=== PATIENT | male | born 1970 | race Caucasian/White ===

== ENCOUNTER → 2022-10-19 | Outpatient (CLI) | payer OTHER | END | disposition home or self-care (01) | LOC: LAB 15:16 → LAB SHORT 15:16 → PLD 15:16 | DX: M72.2 Plantar fascial fibromatosis (principal); M79.671 Pain in right foot; D21.9 Benign neoplasm of connective and other soft tissue, unspecified; R26.2 Difficulty in walking, not elsewhere classified | CPT/HCPCS: 88304 ==

== ENCOUNTER → 2024-09-20 | Outpatient (CLI) | payer OTHER ==
[2024-09-20 14:37] LABS: Microalb/Creat Ratio UR, Rand 8.11 mg/g (0.000-30.000); Microalbumin, Random Urine 13.3 mg/L (0.000-20.000)
== END ==
LOC: LAB SHORT 07:22 → LAB 07:22
PROVIDERS: Internal Medicine
DX: E11.69 Type 2 diabetes mellitus with other specified complication (principal); E11.42 Type 2 diabetes mellitus with diabetic polyneuropathy; E11.628 Type 2 diabetes mellitus with other skin complications
CPT/HCPCS: 82043; 82570

== ENCOUNTER 2024-11-13 19:16 | Inpatient (IN) | payer OTHER ==
[~2024-11-13] VITALS: Ht 190.5 cm; Wt 126.9 kg
[2024-11-13 19:55] LABS: BASOPHILS ABSOLUTE AUTO 0.05 K/mm3 (0.00-0.23); BASOPHILS PERCENT AUTO 0 % (0-2); EOSINOPHILS ABSOLUTE AUTO 0.12 K/mm3 (0.00-0.68); EOSINOPHILS PERCENT AUTO 1 % (0-6); Hematocrit 53.7 % (37.0-53.0); Hemoglobin 18.2 g/dL (13.5-17.5); IMMATURE GRAN ABSOLUTE AUTO 0.08 K/mm3 (0.00-0.10); IMMATURE GRAN PERCENT AUTO 1 % (0-1); LYMPHOCYTES ABSOLUTE AUTO 2.16 K/mm3 (0.84-5.20); LYMPHOCYTES PERCENT AUTO 15 % (21-46); MONOCYTES ABSOLUTE AUTO 0.79 K/mm3 (0.16-1.47); MONOCYTES PERCENT AUTO 6 % (4-13); Mean Corpuscular HGB Conc 33.9 g/dL (31.5-36.5); Mean Corpuscular Volume 86 fL (80-100); NEUTROPHILS ABSOLUTE AUTO 11.05 K/mm3 (1.96-9.15); NEUTROPHILS PERCENT AUTO 78 % (41-73); NRBC ABSOLUTE 0.00 K/mm3 (0.00-0.02); NRBC Auto 0.0 /100 WBC (0.0-0.2); Platelet Count 285 K/mm3 (150-400); RDW Coefficient Variation 13.8 % (11.7-14.2); RDW Standard Deviation 44.0 fL (35.1-46.3)
[2024-11-13] MEDS ORDERED: OZEMPIC1 MG/0.72 SQ (20:06)
[2024-11-13] MEDS ORDERED: METOPROLOL SUCC25 MG PO (20:07)
[2024-11-13] MEDS ORDERED: ERGO400 (20:07)
[2024-11-13] MEDS ORDERED: DEPO-TESTO200 MG/18 IM (20:07)
[2024-11-13] MEDS ORDERED: ASPIRIN REGIMEN81 MG PO (20:07)
[2024-11-13] MEDS ORDERED: LOSA50 PO (20:07)
[2024-11-13 20:17] LABS: Alanine Aminotransfer (ALT/SGP 48.0 U/L (12-78); Albumin, Blood 3.8 g/dL (3.4-5.0); Albumin/Globulin Ratio 1.0 (0.8-1.8); Anion Gap 10.0 mmol/L (3-11); Aspartate Aminotrans (AST/SGOT 21.0 U/L (12-37); Bilirubin, Total 0.9 mg/dL (0.1-1.0); Blood Urea Nitrogen 14.0 mg/dL (8-24); CO2, Blood 24.0 mmol/L (21-32); Calcium, Blood 9.7 mg/dL (8.5-10.1); Chloride, Blood 106.0 mmol/L (98-108); Creatinine, Blood 1.07 mg/dL (0.60-1.20); Globulin, Blood 4.0 g/dL (2.2-4.0); Glucose, Blood 116.0 mg/dL (70-99); Potassium, Blood 4.0 mmol/L (3.5-5.5); Sodium, Blood 136.0 mmol/L (136-145); Total Protein, Blood 7.8 g/dL (6.4-8.2)
[2024-11-13] MEDS ORDERED: Ondansetron HCl 2 MG / ML 2ML Vial IV ONE (20:40)
[2024-11-13] MEDS ORDERED: Morphine Sulfate 4 MG/1 ML Injection IV ONE ×2 (20:40→21:30)
[2024-11-13] MEDS ORDERED: Ketorolac Tromethamine 15mg Vial IV ONE (21:40)
[2024-11-13] MEDS ORDERED: NS 1,000 ML BAG IR ONE (21:40)
[2024-11-13] MEDS ORDERED: NS 1,000 ML IV ONE (21:42)
[2024-11-13] MEDS ORDERED: NS 1,000 ML IV SCH (21:50)
[2024-11-14 00:03] LABS: Source, Urine Clean Catch
[2024-11-14] MEDS ORDERED: NS 1,000 ML IV SCH (00:05)
[2024-11-14 00:13] LABS: Bilirubin, Urine Neg (Neg); Color, Urine Yellow (P-Yellow); Glucose Qualitative, Urine Neg (Neg); Ketones, Urine Neg (Neg); Leukocyte Esterase, Urine Neg (Neg); Protein, Urine 2+ (Neg); Specific Gravity, Urine 1.020 (1.003-1.022); Urobilinogen, Urine NORM (Normal)
[2024-11-14 00:22] LABS: Red Blood Cells, Urine 0-2 /hpf (0-2); White Blood Cells, Urine Not Seen /hpf (0-5)
[2024-11-14] MEDS ORDERED: CefTRIAXone Sodium 1,000 MG in NS 100 ML IV SCH (00:35)
[2024-11-14] MEDS ORDERED: MetroNIDAZOLE 500MG/NS 100 ml 100 ML IV SCH (00:36)
--- NOTE | 2024-11-14 01:00 | NUR ---
ARRIVAL TO UNIT PT ARRIVED TO UNIT FROM ED VIA GOURNEY. PT ABLE TO IND AMBULATE TO BED. A&O x4, RESPONDS TO QUESTIONS APPROPRIATELY, MAKES NEEDS KNOWN. VSS, BP ELEVATED, STABLE. PT REPORTS CONSTANT PAIN TO L ABD 8/10. PT ENDORSES NAUSEA & "DRY HEAVING" 7.7.25, DENIES SYMPTOMS SINCE ARRIVAL TO UNIT. ABD FIRM & DISTENDED. NPO STATUS. IV ABX INFUSING FROM ED. ORIENTED TO UNIT, CALL LIGHT IN REACH, NO NEEDS STATED.
[2024-11-14 01:07] VITALS: BP 164/105
--- NOTE | 2024-11-14 01:18 | NUR ---
DR HERRERA TO BEDSIDE
[2024-11-14] MEDS ORDERED: Morphine Sulfate 4 MG/1 ML Injection IV PRN (01:20)
--- NOTE | 2024-11-14 05:56 | NUR ---
SHIFT SUMMARY NO ACUTE CHANGES OVERNIGHT. VSS. NPO STATUS. PT SLEPT WELL. PT REPORTS ABD PAIN TOLERABLE, MEDICATED PER EMAR. IV FLUIDS/ABX INFUSING PER EMAR. VOIDING. IND IN ROOM. CALL LIGHT IN REACH, BED IN LOWEST POSITION, WILL REPORT TO DAY RN.
[2024-11-14 06:15] VITALS: BP 155/105
[2024-11-14 06:47] LABS: BASOPHILS ABSOLUTE AUTO 0.05 K/mm3 (0.00-0.23); BASOPHILS PERCENT AUTO 0 % (0-2); EOSINOPHILS ABSOLUTE AUTO 0.23 K/mm3 (0.00-0.68); EOSINOPHILS PERCENT AUTO 2 % (0-6); Hematocrit 49.9 % (37.0-53.0); Hemoglobin 16.3 g/dL (13.5-17.5); IMMATURE GRAN ABSOLUTE AUTO 0.06 K/mm3 (0.00-0.10); IMMATURE GRAN PERCENT AUTO 1 % (0-1); LYMPHOCYTES ABSOLUTE AUTO 2.79 K/mm3 (0.84-5.20); LYMPHOCYTES PERCENT AUTO 23 % (21-46); MONOCYTES ABSOLUTE AUTO 0.85 K/mm3 (0.16-1.47); MONOCYTES PERCENT AUTO 7 % (4-13); Mean Corpuscular HGB Conc 32.7 g/dL (31.5-36.5); Mean Corpuscular Volume 90 fL (80-100); NEUTROPHILS ABSOLUTE AUTO 8.02 K/mm3 (1.96-9.15); NEUTROPHILS PERCENT AUTO 67 % (41-73); NRBC ABSOLUTE 0.00 K/mm3 (0.00-0.02); NRBC Auto 0.0 /100 WBC (0.0-0.2); Platelet Count 225 K/mm3 (150-400); RDW Coefficient Variation 13.9 % (11.7-14.2); RDW Standard Deviation 46.1 fL (35.1-46.3)
[2024-11-14 06:55] VITALS: BP 160/110
[2024-11-14 07:08] LABS: Anion Gap 9.0 mmol/L (3-11); Blood Urea Nitrogen 14.0 mg/dL (8-24); CO2, Blood 28.0 mmol/L (21-32); Calcium, Blood 8.7 mg/dL (8.5-10.1); Chloride, Blood 103.0 mmol/L (98-108); Creatinine, Blood 1.12 mg/dL (0.60-1.20); Glucose, Blood 119.0 mg/dL (70-99); Potassium, Blood 4.0 mmol/L (3.5-5.5); Sodium, Blood 136.0 mmol/L (136-145)
[2024-11-14 14:42] VITALS: BP 145/87
--- NOTE | 2024-11-14 17:39 | NUR ---
PT RESTING. IV INFUSING LEFT ARM. TAKING SMALL SIPS PER SURGEON WITHOUT DISTRESS. SO AT BEDSIDE. WILL CONTINUE TO MONITOR.
[2024-11-14 19:12] VITALS: BP 162/104
--- NOTE | 2024-11-15 04:04 | NUR ---
NOC SUMMARY- PT RESTED COMFORTABLY. PT USED HOME CPAP. PAIN MANAGED WELL. PT REPORTS PASSING GAS. PT HAS NO NEW ISSUES. CALL LIGHTIN REACH.
[2024-11-15 06:11] VITALS: BP 147/98
[2024-11-15 07:55] VITALS: BP 175/97
[2024-11-15 09:09] LABS: BASOPHILS ABSOLUTE AUTO 0.03 K/mm3 (0.00-0.23); BASOPHILS PERCENT AUTO 0 % (0-2); EOSINOPHILS ABSOLUTE AUTO 0.24 K/mm3 (0.00-0.68); EOSINOPHILS PERCENT AUTO 3 % (0-6); Hematocrit 46.8 % (37.0-53.0); Hemoglobin 15.5 g/dL (13.5-17.5); IMMATURE GRAN ABSOLUTE AUTO 0.05 K/mm3 (0.00-0.10); IMMATURE GRAN PERCENT AUTO 1 % (0-1); LYMPHOCYTES ABSOLUTE AUTO 1.65 K/mm3 (0.84-5.20); LYMPHOCYTES PERCENT AUTO 19 % (21-46); MONOCYTES ABSOLUTE AUTO 0.57 K/mm3 (0.16-1.47); MONOCYTES PERCENT AUTO 7 % (4-13); Mean Corpuscular HGB Conc 33.1 g/dL (31.5-36.5); Mean Corpuscular Volume 89 fL (80-100); NEUTROPHILS ABSOLUTE AUTO 5.97 K/mm3 (1.96-9.15); NEUTROPHILS PERCENT AUTO 70 % (41-73); NRBC ABSOLUTE 0.00 K/mm3 (0.00-0.02); NRBC Auto 0.0 /100 WBC (0.0-0.2); Platelet Count 206 K/mm3 (150-400); RDW Coefficient Variation 13.5 % (11.7-14.2); RDW Standard Deviation 44.3 fL (35.1-46.3)
[2024-11-15 09:20] VITALS: BP 164/98
[2024-11-15 09:32] LABS: Alanine Aminotransfer (ALT/SGP 34.0 U/L (12-78); Albumin, Blood 3.2 g/dL (3.4-5.0); Albumin/Globulin Ratio 1.0 (0.8-1.8); Anion Gap 5.0 mmol/L (3-11); Aspartate Aminotrans (AST/SGOT 14.0 U/L (12-37); Bilirubin, Total 0.5 mg/dL (0.1-1.0); Blood Urea Nitrogen 12.0 mg/dL (8-24); CO2, Blood 31.0 mmol/L (21-32); Calcium, Blood 8.8 mg/dL (8.5-10.1); Chloride, Blood 105.0 mmol/L (98-108); Creatinine, Blood 1.04 mg/dL (0.60-1.20); Globulin, Blood 3.3 g/dL (2.2-4.0); Glucose, Blood 94.0 mg/dL (70-99); Potassium, Blood 4.0 mmol/L (3.5-5.5); Sodium, Blood 137.0 mmol/L (136-145); Total Protein, Blood 6.5 g/dL (6.4-8.2)
[2024-11-15 14:15] VITALS: BP 157/98
--- NOTE | 2024-11-15 15:55 | NUR ---
SHIFT SUMMARY PT REPORTS FEELING BETTER THIS SHIFT. ADVANCING DIET TO REGULAR FOR DINNER. REPORTS FLATUS, DENIES N/V. INDEPENDENTLY AMBULATING HALLWAYS. MINIMAL ABD PAIN. PLANNING TO TRANSITION TO ORAL PAIN MEDICATIONS ONCE ORDERS ARE PLACED, OTHERWISE TOLERATING IV MORPHINE PRN. AT BEDSIDE FOR SUPPORT. USES CALL LIGHT APPROPRIATELY.
[2024-11-15 19:22] VITALS: BP 163/97
--- NOTE | 2024-11-16 04:07 | NUR ---
SHIFT SUMMARY NO ACUTE CHANGES THIS SHIFT. HOME MEDS STARTED TO MANAGED BP. MEDICATED X 1 FOR PAIN PER EMAR. ABX INFUSED PER ORDERS. IS IND IN ROOM. PASSING FLATUS AND VOIDING. ABLE TO MAKE NEEDS KNOWN. IS CURRENTLY RESTING IN BED WITH EYES CLOSED, RESP EVEN/UNLABORED WITH CALL LIGHT IN REACH. WILL GIVE REPORT TO ONCOMING RN.
[2024-11-16 04:37] VITALS: BP 155/97
[2024-11-16 07:06] VITALS: BP 143/95
[2024-11-16 08:15] LABS: BASOPHILS ABSOLUTE AUTO 0.05 K/mm3 (0.00-0.23); BASOPHILS PERCENT AUTO 1 % (0-2); EOSINOPHILS ABSOLUTE AUTO 0.21 K/mm3 (0.00-0.68); EOSINOPHILS PERCENT AUTO 3 % (0-6); Hematocrit 47.8 % (37.0-53.0); Hemoglobin 16.3 g/dL (13.5-17.5); IMMATURE GRAN ABSOLUTE AUTO 0.03 K/mm3 (0.00-0.10); IMMATURE GRAN PERCENT AUTO 0 % (0-1); LYMPHOCYTES ABSOLUTE AUTO 1.50 K/mm3 (0.84-5.20); LYMPHOCYTES PERCENT AUTO 18 % (21-46); MONOCYTES ABSOLUTE AUTO 0.62 K/mm3 (0.16-1.47); MONOCYTES PERCENT AUTO 8 % (4-13); Mean Corpuscular HGB Conc 34.1 g/dL (31.5-36.5); Mean Corpuscular Volume 88 fL (80-100); NEUTROPHILS ABSOLUTE AUTO 5.89 K/mm3 (1.96-9.15); NEUTROPHILS PERCENT AUTO 71 % (41-73); NRBC ABSOLUTE 0.00 K/mm3 (0.00-0.02); NRBC Auto 0.0 /100 WBC (0.0-0.2); Platelet Count 215 K/mm3 (150-400); RDW Coefficient Variation 13.4 % (11.7-14.2); RDW Standard Deviation 43.3 fL (35.1-46.3)
[2024-11-16 09:00] LABS: Alanine Aminotransfer (ALT/SGP 34.0 U/L (12-78); Albumin, Blood 3.3 g/dL (3.4-5.0); Albumin/Globulin Ratio 1.0 (0.8-1.8); Anion Gap 7.0 mmol/L (3-11); Aspartate Aminotrans (AST/SGOT 17.0 U/L (12-37); Bilirubin, Total 0.6 mg/dL (0.1-1.0); Blood Urea Nitrogen 12.0 mg/dL (8-24); CO2, Blood 29.0 mmol/L (21-32); Calcium, Blood 9.0 mg/dL (8.5-10.1); Chloride, Blood 105.0 mmol/L (98-108); Creatinine, Blood 1.07 mg/dL (0.60-1.20); Globulin, Blood 3.4 g/dL (2.2-4.0); Glucose, Blood 104.0 mg/dL (70-99); Potassium, Blood 4.8 mmol/L (3.5-5.5); Sodium, Blood 136.0 mmol/L (136-145); Total Protein, Blood 6.7 g/dL (6.4-8.2)
[2024-11-16] MEDS ORDERED: Cholecalciferol 1000 Unit Tablet (=25MCG) PO SCH (09:00)
[2024-11-16] MEDS ORDERED: VITAMIN D5000 UNIT PO (13:27)
[2024-11-16] MEDS ORDERED: IBU600 M1 PO (13:29)
[2024-11-16] MEDS ORDERED: LEVFLO500 PO (13:29)
[2024-11-16 14:07] VITALS: BP 134/87
[2024-11-16] MEDS ORDERED: Percocet 5-3251 EACH PO (14:18)
--- NOTE | 2024-11-16 14:39 | NUR ---
discharged REVIEWED DC INSTRUCTIONS W/PT; VERBALIZED UNDERSTANDING. IV DC'D. VSS. PRESCRIPTIONS FAXED TO [facility] PER PT REQUEST. PT DECLINED WC, ELECTING TO AMBULATE OUT WITH SIGNIFICANT OTHER. HAD POSSESSIONS AND DC PAPERWORK IN HAND.
== END 2024-11-16 14:41 | disposition home or self-care (01) | DRG 872 ==
LOC: ER 19:16 → SURS 19:17
PROVIDERS: Family Medicine; Internal Medicine; Student in an Organized Health Care Education/Training Program; ADMIT Student in an Organized Health Care Education/Training Program
DX: A41.9 Sepsis, unspecified organism (principal); K57.32 Diverticulitis of large intestine without perforation or abscess without bleeding; K56.609 Unspecified intestinal obstruction, unspecified as to partial versus complete obstruction; E11.9 Type 2 diabetes mellitus without complications; G47.33 Obstructive sleep apnea (adult) (pediatric); E66.9 Obesity, unspecified; I10 Essential (primary) hypertension; Z99.89 Dependence on other enabling machines and devices; Z79.82 Long term (current) use of aspirin; Z79.899 Other long term (current) drug therapy; Z68.35 Body mass index [BMI] 35.0-35.9, adult
CPT/HCPCS: 36415; 74177; 80048; 80053; 81001; 83690; 85025; 87040; 94762; 96361; 96365; 96366; 96374-59; 96375; 96376; 99285-25; A9270; G0378; J0696; J1885; J2270; J2405; J7030; Q9967

== ENCOUNTER 2025-01-17 14:13 | Day surgery (SDC) | payer OTHER ==
[~2025-01-17] VITALS: Ht 188 cm; Wt 129.3 kg
[~2025-01-17 14:13] MED LIST: ASPIRIN REGIMEN81 MG PO; DEPO-TESTO200 MG/18 IM; ERGO400; IBU600 M1 PO; LEVFLO500 PO; LOSA50 PO; METOPROLOL SUCC25 MG PO; OZEMPIC1 MG/0.72 SQ; Percocet 5-3251 EACH PO; VITAMIN D5000 UNIT PO
[2025-01-17 14:40] VITALS: BP 155/91
[2025-01-17] MEDS ORDERED: OZEMPIC1 MG/0.72 SC (14:46)
--- NOTE | 2025-01-17 16:51 | NUR ---
01/17/25 1504 Liz Molina ENDO 1 @ 163- CONFIRMED AND REVIEWED H&P, MEDCICATIONS, ALLERGIES, MEDICAL HISTORY, RESPIRATORY HISTORY, VITAL SIGNS, 3-LEAD EKG, CONSENTS, AND PHYSICIAN ORDERS. PATIENT CONFIRMS NPO STATUS AND AGREES WITH SCHEDULED PROCEDURE. MONITOR INTACT WITH CONTINUOUS PULSE OXIMETRY, CAPNOGRAPHY, 3-LEAD EKG, INTERMITTENT BP. SUPPLEMENTAL O2 TO BE TITRATED THROUGHOUT PROCEDURE TO MAINTAIN O2 SATURATION ABOVE 90%. PATIENT DETERMINED TO BE ASA APPROPRIATE FOR MAC PRIOR TO START OF PROCEDURE BY . DR. GRAHAM PROVIDING MAC-SEE ANESTHESIA RECORD.
[2025-01-17 17:15] VITALS: BP 143/91
[2025-01-17 17:30] VITALS: BP 157/98
--- NOTE | 2025-01-17 17:43 | NUR ---
DISCHARGE NOTE PT A&OX4, BREATHING RA, VSS, TOLERATING PO INTAKE, NO COMPLAINTS. Patient up to Ambulate independently. Gait steady. Discharge instructions reviewed with patient. Patient verbalizes understanding. Copy given to patient to take home. Discharged via wheelchair to private car for ride home.
== END 2025-01-17 17:38 | disposition home or self-care (01) ==
LOC: ORSCMMR 14:13 → ORD 15:30 → ORSCMMR 15:30
PROVIDERS: Family Medicine
PROC: 0DBP8ZX Excision of Rectum, Via Natural or Artificial Opening Endoscopic, Diagnostic (ICD-10-PCS; principal; 2025-01-17 15:30)
PROC: 3E0H8KZ Introduction of Other Diagnostic Substance into Lower GI, Via Natural or Artificial Opening Endoscopic (ICD-10-PCS; principal; 2025-01-17 15:30)
DX: Z12.11 Encounter for screening for malignant neoplasm of colon (principal); K62.1 Rectal polyp; K64.4 Residual hemorrhoidal skin tags; K64.8 Other hemorrhoids; E11.9 Type 2 diabetes mellitus without complications; G47.33 Obstructive sleep apnea (adult) (pediatric); N40.0 Benign prostatic hyperplasia without lower urinary tract symptoms; I10 Essential (primary) hypertension; E66.9 Obesity, unspecified; Z68.36 Body mass index [BMI] 36.0-36.9, adult; Z79.82 Long term (current) use of aspirin; Z79.899 Other long term (current) drug therapy; F17.220 Nicotine dependence, chewing tobacco, uncomplicated
CPT/HCPCS: 82947; 88305; J2704; J7120